=== PATIENT | male | born 1995 | race Caucasian/White ===

== ENCOUNTER 2019-04-02 19:25 | Emergency (ER) | payer SELFPAY ==
[2019-04-02 19:33] VITALS: BP 110/77; PULSE 106; TEMP 98.7
--- NOTE | 2019-04-02 19:34 | PDOC ---
Rapid Medical Evaluation Chief Complaint: Toothache Time Seen by Provider: 04/02/19 19:32 Medical Evaluation: Allergies Allergy/AdvReac Type Severity Reaction Status Date / Time No Known Allergies Allergy Verified 04/02/19 19:30 04/02/19 19:32 I have performed a brief in-person evaluation of this patient. The patient presents with a chief complaint of: left side upper gum swelling with pain and swelling to left side of face. Denies fever Pertinent physical exam findings: mild swelling to left side of face I have ordered the following: nothing The patient will proceed to the ED for further evaluation. Discharge Disposition - Diagnosis Periodontitis - Discharge Dispostion Condition at time of disposition: Stable - Referrals - Patient Instructions - Post Discharge Activity
--- NOTE | 2019-04-02 21:03 | PDOC ---
History of Present Illness - General Chief Complaint: Toothache Stated Complaint: SWOLLEN FACE Time Seen by Provider: 04/02/19 19:32 History Source: Patient Exam Limitations: Clinical Condition - History of Present Illness Initial Comments: 04/02/19 21:04 Patient with no significant past medical history present with complaint of swelling to left side of gum and swelling to face with pain for 2 days. Denies fever, chills. Denies any other symptoms Timing/Duration: 24 hours Past History - Past Medical History Allergies/Adverse Reactions: Allergies Allergy/AdvReac Type Severity Reaction Status Date / Time No Known Allergies Allergy Verified 04/02/19 19:30 Home Medications: Ambulatory Orders Amox-Tr/K Cl [Augmentin - 875Mg Tablet] 1 tab PO BID #14 tablet 04/02/19 Ibuprofen 800 mg PO Q8H PRN #20 tablet 04/02/19 COPD: No - Suicide/Smoking/Psychosocial Hx Smoking History: Never smoked Review of Systems - Review of Systems Able to Perform ROS?: Yes Is the patient limited Kiswahili proficient: No Constitutional: No: Chills, Fever, Malaise HEENTM: Yes: Symptoms Reported, See HPI, Dental Problems, Other (swelling to left side of face). No: Eye Pain, Blurred Vision, Tearing, Recent change in vision, Double Vision, Cataracts, Ear Pain, Ocular Prothesis, Ear Discharge, Nose Pain, Nose Congestion, Tinnitus, Nose Bleeding, Hearing Loss, Throat Pain, Throat Swelling, Mouth Pain, Difficulty Swallowing, Mouth Swelling Respiratory: No: Symptoms reported, See HPI, Cough, Orthopnea, Shortness of Breath, SOB with Exertion, SOB at Rest, Stridor, Wheezing, Productive cough, Hemoptysis, Other Cardiac (ROS): No: Symptoms Reported, See HPI, Chest Pain, Edema, Irregular Heart Rate, Lightheadedness, Palpitations, Syncope, Chest Tightness, Other ABD/GI: No: Nausea, Vomiting Neurological: No: Weakness, Dizziness All Other Systems: Reviewed and Negative *Physical Exam - Vital Signs Last Vital Signs Temp Pulse Resp BP Pulse Ox 98.7 F 106 H 18 110/77 100 04/02/19 19:31 04/02/19 19:31 04/02/19 19:31 04/02/19 19:31 04/02/19 19:31 - Physical Exam Comments: 04/02/19 21:06 GENERAL: Well developed, well nourished. Awake and alert. No acute distress. HEENT: Moderate swelling to periodontal of left upper back molars with mild erythema. Mild swelling to left side of face from periodontal swelling. Normocephalic, atraumatic. PERRLA, EOMI. No conjunctival pallor. Sclera are non- icteric. Moist mucous membranes. NECK: Supple. Full ROM. CARDIOVASCULAR: Regular rate and rhythm. No murmurs, rubs, or gallops. Distal pulses are 2+ and symmetric. PULMONARY: No evidence of respiratory distress. Lungs clear to auscultation bilaterally. No wheezing, rales or rhonchi. ABDOMINAL: Soft. Non-tender. Non-distended. No rebound or guarding. No organomegaly. Normoactive bowel sounds. MUSCULOSKELETAL Normal range of motion at all joints. SKIN: Warm and dry. Normal capillary refill. No rashes. NEUROLOGICAL: Alert, awake, appropriate. Gait is normal without ataxia. PSYCHIATRIC: Cooperative. Good eye contact. Appropriate mood General Appearance: Yes: Nourished, Appropriately Dressed. No: Apparent Distress Medical Decision Making - Medical Decision Making 04/02/19 21:04 Patient with no significant past medical history present with complaint of swelling to left side of gum and swelling to face with pain for 2 days. Denies fever, chills. Denies any other symptoms Exam significant for moderate swelling of left upper gums and left side of face. No skin erythema. No open wounds. Symptoms likely periodontal infection. Patient is stable for discharge on Augmentin for week and ibuprofen when necessary for pain with dental follow-up *DC/Admit/Observation/Transfer Diagnosis at time of Disposition: Periodontitis - Discharge Dispostion Disposition: HOME Condition at time of disposition: Stable Decision to Admit order: No - Prescriptions Prescriptions: Amox-Tr/K Cl [Augmentin - 875Mg Tablet] 1 tab PO BID #14 tablet Ibuprofen 800 mg PO Q8H PRN #20 tablet PRN Reason: pain and swelling - Referrals Referrals: Candelario Garcia [Staff Physician] - - Patient Instructions Printed Discharge Instructions: Periodontitis Additional Instructions: Take medications as prescribed. gargle with salt water. Follow-up with referred dentist . - Post Discharge Activity
[2019-04-02] MEDS ORDERED: KETOROLAC TROMETHAMINE 60 MG/2 ML VIAL IM ONE (21:07)
[2019-04-02] MEDS ORDERED: KETOROLAC TROMETHAMINE 60 MG/2 ML VIAL ONE (21:28)
== END 2019-04-02 21:36 | disposition home or self-care (01) ==
LOC: JERFT 19:25
PROC: 3E0233Z Introduction of Anti-inflammatory into Muscle, Percutaneous Approach (ICD-10-PCS; principal; 2019-04-02)
DX: K05.30 Chronic periodontitis, unspecified (principal)
CPT/HCPCS: 99281-25